=== PATIENT | male | born 1955 | race Caucasian/White ===

== ENCOUNTER 2020-02-10 13:27 | Outpatient (CLI) | payer BC ==
[~2020-02-10 13:27] MED LIST: Magnevist 469MG/ML 20 ML VIAL ONE
--- NOTE | 2020-02-10 18:32 | MRI ---
MRI OF THE PROSTAST WITHOUT AND WITH CONTRAST: 02/10/20 COMPARISON: None. HISTORY: Prostate cancer. Patient had biopsy six to eight weeks ago. TECHNIQUE: Multiplanar and multisequence MR images were obtained of the prostate without and with IV contrast. FINDINGS: There is mild hypertrophy of the central gland consistent with BPH. Prostate volume is estimated at 2 5 mL. There is a large bubble of air in the patient's rectum which produces artifact making the diffu rosmery sequence and ACD sequence noninterpretable for evaluation of the peripheral zone of the prostate . No suspicious low T2 signal lesions are seen in the central gland or peripheral zone of the prostate. Seminal vesicles are intact. The neurovascular bundles are intact. No pelvic adenopathy is seen. No m arrow signal abnormality is present. No suspicious enhancement is seen on this exam. IMPRESSION: PI-RADS category 2 - low likelihood that a clinically significant cancer is present. POS: EAA
== END 2020-02-10 13:28 | disposition home or self-care (01) ==
LOC: TBSIIMAG 13:27
PROVIDERS: ATTEND Urology
DX: C61 Malignant neoplasm of prostate (principal); Z80.42 Family history of malignant neoplasm of prostate; Z82.49 Family history of ischemic heart disease and other diseases of the circulatory system
CPT/HCPCS: 72197; 82565; A9579